=== PATIENT | female | born 1955 | race American Indian/Alaskan Native ===

== ENCOUNTER 2019-02-28 13:31 | Emergency (ER) | payer MEDICARE ==
--- NOTE | 2019-02-28 15:08 | Emergency Department Report ---
ED General Adult HPI - General Chief complaint: Dizziness Stated complaint: DIZZINESS Time Seen by Provider: 02/28/19 14:50 Source: patient Mode of arrival: Stretcher Limitations: No Limitations - History of Present Illness Initial comments: There is no visual puffed with history of pulmonary hypertension COPD and congestive heart failure who presents with shortness of breath and syncopal event that occurred today. Patient states that she was sitting down when she passed out. Nothing makes her sob better and nothing makes it worse. It is severe she states that she has had similar episodes of sob in the past. - Related Data Allergies Allergy/AdvReac Type Severity Reaction Status Date / Time No Known Allergies Allergy Unverified 02/28/19 13:48 ED Review of Systems ROS: Stated complaint: DIZZINESS Other details as noted in HPI Constitutional: denies: chills, fever Eyes: denies: eye pain, eye discharge, vision change ENT: denies: ear pain, throat pain Respiratory: shortness of breath. denies: cough, wheezing Cardiovascular: denies: chest pain, palpitations Endocrine: no symptoms reported Gastrointestinal: denies: abdominal pain, nausea, diarrhea Genitourinary: denies: urgency, dysuria, discharge Musculoskeletal: denies: back pain, joint swelling, arthralgia Skin: denies: rash, lesions Neurological: denies: headache, weakness, paresthesias Psychiatric: denies: anxiety, depression Hematological/Lymphatic: denies: easy bleeding, easy bruising ED Past Medical Hx - Past Medical History Previous Medical History?: Yes Hx Hypertension: Yes Hx Congestive Heart Failure: Yes Hx COPD: Yes Additional medical history: Afib - Surgical History Past Surgical History?: No - Social History Smoking Status: Never Smoker Substance Use Type: None ED Physical Exam - General Limitations: No Limitations General appearance: alert, in no apparent distress - Head Head exam: Present: atraumatic, normocephalic - Eye Eye exam: Present: normal appearance - ENT ENT exam: Present: mucous membranes moist - Neck Neck exam: Present: normal inspection - Respiratory Respiratory exam: Present: other (rhonchi bilaterally ). Absent: respiratory distress - Cardiovascular Cardiovascular Exam: Present: regular rate, normal rhythm. Absent: systolic murmur, diastolic murmur, rubs, gallop - GI/Abdominal GI/Abdominal exam: Present: soft, normal bowel sounds - Extremities Exam Extremities exam: Present: normal inspection - Back Exam Back exam: Present: normal inspection - Neurological Exam Neurological exam: Present: alert, oriented X3 - Psychiatric Psychiatric exam: Present: normal affect, normal mood - Skin Skin exam: Present: warm, dry, intact, normal color. Absent: rash ED Course Vital Signs 02/28/19 02/28/19 02/28/19 13:40 13:44 13:46 Temperature 98.2 F Pulse Rate 92 H 89 83 Pulse Rate [ Right Middle Lobe] Respiratory 20 20 15 Rate Respiratory Rate [Right Middle Lobe] Blood Pressure 121/67 121/67 O2 Sat by Pulse 100 100 100 Oximetry 02/28/19 02/28/19 02/28/19 14:00 14:16 14:30 Temperature Pulse Rate 89 79 79 Pulse Rate [ Right Middle Lobe] Respiratory 16 15 13 Rate Respiratory Rate [Right Middle Lobe] Blood Pressure 130/68 117/75 122/71 O2 Sat by Pulse 100 100 100 Oximetry 02/28/19 02/28/19 02/28/19 14:46 15:00 15:16 Temperature Pulse Rate 79 88 77 Pulse Rate [ Right Middle Lobe] Respiratory 20 13 17 Rate Respiratory Rate [Right Middle Lobe] Blood Pressure 130/69 136/70 132/67 O2 Sat by Pulse 100 95 94 Oximetry 02/28/19 02/28/19 02/28/19 15:30 15:46 16:00 Temperature Pulse Rate 78 77 75 Pulse Rate [ 84 Right Middle Lobe] Respiratory 19 14 13 Rate Respiratory 18 Rate [Right Middle Lobe] Blood Pressure 129/65 136/67 118/55 O2 Sat by Pulse 96 100 100 Oximetry 02/28/19 02/28/19 02/28/19 16:15 16:30 16:45 Temperature Pulse Rate 80 80 88 Pulse Rate [ Right Middle Lobe] Respiratory 16 12 20 Rate Respiratory Rate [Right Middle Lobe] Blood Pressure 119/52 116/46 118/43 O2 Sat by Pulse 100 100 100 Oximetry 02/28/19 02/28/19 17:00 17:15 Temperature Pulse Rate 88 93 H Pulse Rate [ Right Middle Lobe] Respiratory 15 18 Rate Respiratory Rate [Right Middle Lobe] Blood Pressure 110/35 105/28 O2 Sat by Pulse 100 100 Oximetry - Consultations Consultation #1: 02/28/19 18:39 Dr. Sandoval from [facility] accepted patient for transfer. ED Medical Decision Making - Lab Data Result diagrams: 02/28/19 15:17 02/28/19 15:17 Lab Results 02/28/19 02/28/19 02/28/19 Range/Units 15:17 15:17 15:28 WBC 3.9 L (4.5-11.0) K/mm3 RBC 3.12 L (3.65-5.03) M/mm3 Hgb 7.9 L (10.1-14.3) gm/dl Hct 27.4 L (30.3-42.9) % MCV 88 (79-97) fl MCH 25 L (28-32) pg MCHC 29 L (30-34) % RDW 24.5 H (13.2-15.2) % Plt Count 119 L (140-440) K/mm3 Lymph % (Auto) Executive [employer] Manager [place] % (Auto) Executive Account Manager Eos % (Auto) Executive Account Manager Baso % (Auto) Executive Account Manager Lymph # Executive Account Manager [place] # Executive Account Manager Eos # Executive Account Manager Baso # Executive Account Manager Seg Neutrophils % Executive Account Manager Seg Neutrophils # Executive Account Manager Sodium 142 (137-145) mmol/L Potassium 4.2 (3.6-5.0) mmol/L Chloride 105.6 (98-107) mmol/L Carbon Dioxide 27 (22-30) mmol/L Anion Gap 14 mmol/L BUN 33 H (7-17) mg/dL Creatinine 1.0 (0.7-1.2) mg/dL Estimated GFR > 60 ml/min BUN/Creatinine Ratio 33 % Glucose 73 (65-100) mg/dL Calcium 9.7 (8.4-10.2) mg/dL Total Bilirubin 0.20 (0.1-1.2) mg/dL AST 12 (5-40) units/L ALT 9 (7-56) units/L Alkaline Phosphatase 86 (35-129) units/L Troponin T < 0.010 (0.00-0.029) ng/mL NT-Pro-B Natriuret Pep 4002 H (0-900) pg/mL Total Protein 7.9 (6.3-8.2) g/dL Albumin 3.6 L (3.9-5) g/dL Albumin/Globulin Ratio 0.8 % - EKG Data -: EKG Interpreted by Fl - EKG Data 02/28/19 18:41 EKG shows sinus rhythm in atrial premature complexes no ST segment elevation or T-wave inversion. Impression abnormal EKG - Radiology Data Radiology results: report reviewed, image reviewed Chest xray: Shows cardiomegaly and pulmonary vascular congestion. - Medical Decision Making Cdx: CHF exacerbation ddx: COPD exacerbation, arrythmia, electrolyte abnormality I will get cbc, bmp, troponin, bnp, cxr and I will give breathing treatment and IV steroids. Patient is still sob and wheezing I will transfer patient to [facility] as they requested. Critical care attestation.: If time is entered above; I have spent that time in minutes in the direct care of this critically ill patient, excluding procedure time. ED Disposition Clinical Impression: COPD exacerbation Acute exacerbation of congestive heart failure Qualifiers: Heart failure type: unspecified Qualified Code(s): I50.9 - Heart failure, unspecified Disposition: DC/TX-70 ANOTHER TYPE HLTHCARE Is pt being admited?: No Does the pt Need Aspirin: No Condition: Stable Instructions: Chronic Obstructive Pulmonary Disease (ED) Referrals: ELDER CARDENAS MD [Primary Care Provider] - 3-5 Days
[2019-02-28] MEDS ORDERED: ATROVENT IH ONE (15:14)
[2019-02-28] MEDS ORDERED: PROVENTIL IH ONE (15:14)
[2019-02-28] MEDS ORDERED: SOLU-Medrol IV ONE (15:14)
--- NOTE | 2019-02-28 15:54 | XRay Report ---
CHEST 1 VIEW INDICATION: sob. Acute shortness of breath COMPARISON: None FINDINGS: Support devices: None. Heart: Mild cardiomegaly. Lungs/Pleura: Mild edema with no significant effusion. Additional findings: None. IMPRESSION: 1. Cardiomegaly with mild interstitial edema. Signer Name: Matias Bello MD Signed: 02/28/2019 3:50 PM Workstation Name: [id number]
[2019-02-28 16:10] LABS: Hematocrit 27.4 % (30.3-42.9); Hemoglobin 7.9 gm/dl (10.1-14.3); Mean Corpuscular HGB Conc 29 % (30-34); Mean Corpuscular Volume 88 fl (79-97); Platelet Count 119 K/mm3 (140-440); Red Blood Count 3.12 M/mm3 (3.65-5.03); Red Cell Distribution Width 24.5 % (13.2-15.2)
[2019-02-28 16:57] LABS: Alanine Aminotransferase 9 units/L (7-56); Albumin 3.6 g/dL (3.9-5); BUN/Creatinine Ratio 33; Blood Urea Nitrogen 33 mg/dL (7-17); Calcium 9.7 mg/dL (8.4-10.2); Hemolysis Index 4
[2019-02-28] MEDS ORDERED: LASIX IV ONE (18:02)
[2019-02-28 19:36] VITALS: BP 110/60
== END 2019-02-28 19:44 | disposition other institution (70) ==
LOC: ED 13:31
DX: J44.1 Chronic obstructive pulmonary disease with (acute) exacerbation (principal); I11.0 Hypertensive heart disease with heart failure; I50.9 Heart failure, unspecified; I48.91 Unspecified atrial fibrillation
CPT/HCPCS: 36415; 71045; 80053; 83880; 84484; 85025; 93005; 93010; 94640; 96374; 96375; 99285; J1940; J2930